=== PATIENT | male | born 1935 | race Caucasian/White ===

== ENCOUNTER 2017-03-25 12:29 | Emergency (ER) | payer MEDICARE, MEDICAID ==
[~2017-03-25 12:29] MED LIST: ADULT LOW DOSE81 M1 PO; ALLOPURINOL100 MG PO; ANTIBIOTIC; ATORVASTATIN CA40 MG PO; AUGMENTIN 500-1 EAC2 PO; AUGMENTIN 875-1 EAC2 PO; CAPTOPRIL25 MG PO; CARVEDILOL12.5 M1 PO; CARVEDILOL12.5 MG PO; DIABETES MED; DULCOLAX10 MG PR; ECOTRIN325 M1 PO; ECOTRIN81 M2 PO; ECOTRIN81 MG PO; FLOMAX0.4 M1 PO; LIPITOR40 M1 PO; LISINOPRIL; LISINOPRIL5 MG PO; MILK OF MAGNESIA PO; NITROGLYCERIN0.4 MG SL; NORCO 5-325 TA1 EACH PO; NORVASC5 M1 PO; OMEPRAZOLE20 MG PO; PERCOCET 5-3251 EACH PO; PLAVIX75 MG PO; PROLOPRIM100 MG PO; RANEXA500 M1 PO; RANEXA500 MG PO; SYNTHROID50 MCG PO; SYNTHROID75 MC1 PO; TRADJENTA5 M1 PO; TRADJENTA5 MG PO; ULTRAM50 M1 PO; VITAMIN D250000 UNIT PO; VITAMIN D5000 UNI1 PO; VITAMIN D5000 UNIT PO; ZYLOPRIM100 M1 PO
[2017-03-25] MEDS ORDERED: NITROGLYCERIN0.4 M2 SL (12:38)
[2017-07-26] MEDS ORDERED: LEVAQUIN750 M1 PO (13:18)
== END 2017-03-25 14:47 ==
LOC: EDMED 12:29
DX: M17.12 Unilateral primary osteoarthritis, left knee (principal); I25.10 Atherosclerotic heart disease of native coronary artery without angina pectoris; Z95.1 Presence of aortocoronary bypass graft; Z95.5 Presence of coronary angioplasty implant and graft; Z79.899 Other long term (current) drug therapy; Z79.82 Long term (current) use of aspirin